=== PATIENT | female | born 1985 | race Caucasian/White ===

== ENCOUNTER 2019-04-13 17:08 | Observation (INO) | payer MEDICAID ==
[~2019-04-13] VITALS: Ht 165.1 cm; Wt 71.7 kg
[2019-04-13 17:21] VITALS: BP 119/65
[2019-04-13 17:30] VITALS: BP 119/65
--- NOTE | 2019-04-13 17:30 | NUR ---
CALLED L&D, SPOKE TO WILLIE. PT TO L&D VIA W/C WITH FAMILY
[2019-04-13] MEDS ORDERED: FERR325E14 PO (17:51)
[2019-04-13] MEDS ORDERED: PREN-380 PO (17:51)
[2019-04-13] MEDS ORDERED: CALC500T2 PO (17:51)
[2019-04-13 18:52] LABS: BASOPHILS % (AUTO) 0.4 % (0.0-2.0); EOSINOPHILS # (AUTO) 0.1 K/uL (0-0.4); EOSINOPHILS % (AUTO) 0.8 % (0.0-4.0); HEMATOCRIT 27.7 % (36-48); HEMOGLOBIN 8.4 g/dL (12.0-16.0); LYMPHOCYTES # (AUTO) 2.3 K/uL (2.5-16.5); LYMPHOCYTES % (AUTO) 28.1 % (20.5-51.1); MEAN CORPUSCULAR HEMOGLOBIN 20 pg (27-31); MEAN CORPUSCULAR HGB CONC 30 g/dL (33-37); MONOCYTES # (AUTO) 0.7 K/uL (0.8-1.0); MONOCYTES % (AUTO) 8.2 % (1.7-9.3); NEUTROPHILS # (AUTO) 5.2 K/uL (1.8-7.7); NEUTROPHILS % (AUTO) 62.5 % (42.2-75.2); PLATELET COUNT (AUTO) 274 K/uL (140-450); RED BLOOD CELL COUNT(AUTO) 4.13 MIL/uL (4.20-5.40); RED CELL DISTRIBUTION WIDTH 17.9 % (11.6-13.7); WHITE BLOOD COUNT (AUTO) 8.2 K/uL (4.8-10.8)
[2019-04-13 19:02] LABS: APPEARANCE,URINE CLEAR (CLEAR); BILIRUBIN,URINE NEGATIVE (NEGATIVE); BLOOD, URINE NEGATIVE (NEGATIVE); COLOR,URINE YELLOW (YELLOW); LEUKOCYTE ESTERASE ,URINE TRACE (NEGATIVE); NITRITE, URINE NEGATIVE (NEGATIVE); UGLUCOSE NEGATIVE (NEGATIVE)
[2019-04-13 19:07] LABS: BARBITURATE, URINE NEG. ng/ml (NEG <=200); BENZODIAZEPINE, URINE NEG. ng/mL (NEG <=200); CANNABINOID, URINE NEG. ng/mL (NEG <=50); COCAINE, URINE NEG. ng/mL (NEG <=300); OPIATE, URINE NEG. ng/mL (NEG <=2000); PHENCYCLIDINE SCREEN,URINE NEG. ng/mL (NEG <=25)
[2019-04-13 19:24] LABS: RBC,URINE 0-5 /HPF (0-5); WBC,URINE 0-5 /HPF (0-5)
== END 2019-04-13 20:45 | disposition home or self-care (01) ==
LOC: MED 17:08 → MLD 17:43
PROVIDERS: ADMIT Obstetrics & Gynecology; ATTEND Obstetrics & Gynecology
DX: O99.89 Other specified diseases and conditions complicating pregnancy, childbirth and the puerperium (principal); M54.9 Dorsalgia, unspecified; O99.323 Drug use complicating pregnancy, third trimester; F15.90 Other stimulant use, unspecified, uncomplicated; F12.10 Cannabis abuse, uncomplicated; Z3A.39 39 weeks gestation of pregnancy
CPT/HCPCS: 36415; 76805; 80305; 81001; 85025; 86592; 86703; 86762; 86870; 86886; 86900; 86901; 87653; 99281; G0378; Q0092

== ENCOUNTER 2019-04-14 16:14 | Inpatient (IN) | payer MEDICAID ==
[~2019-04-14] VITALS: Ht 165.1 cm; Wt 71.7 kg
[~2019-04-14 16:14] MED LIST: CALC500T2 PO; FERR325E14 PO; PREN-380 PO
[2019-04-14] MEDS ORDERED: METHYLERGONOVINE 0.2 MG/ML AMP IM PRN (16:40)
[2019-04-14] MEDS ORDERED: CARBOPROST 250 MCG/ML AMP IM PRN (16:40)
[2019-04-14] MEDS ORDERED: OXYTOCIN 10 UNITS/ML VIAL IM SCH (16:40)
[2019-04-14] MEDS ORDERED: PROMETHAZINE 25 MG/ML VIAL IVP PRN (16:40)
[2019-04-14] MEDS ORDERED: NALBUPHINE 10 MG/ML AMP IVP PRN (16:40)
[2019-04-14] MEDS ORDERED: OXYTOCIN 20 UNITS/LR PREMIX 1,000 ML IV ONE (17:33)
[2019-04-14] MEDS: LACTATED RINGERS 1,000 ML IV SCH (17:39)
[2019-04-14] MEDS ORDERED: OXYTOCIN 20 UNITS in LACTATED RINGERS 1,000 ML IV SCH (17:45)
[2019-04-14 18:01] LABS: BASOPHILS % (AUTO) 0.5 % (0.0-2.0); EOSINOPHILS # (AUTO) 0.1 K/uL (0-0.4); EOSINOPHILS % (AUTO) 0.7 % (0.0-4.0); HEMATOCRIT 26.4 % (36-48); HEMOGLOBIN 8.1 g/dL (12.0-16.0); LYMPHOCYTES # (AUTO) 2.3 K/uL (2.5-16.5); LYMPHOCYTES % (AUTO) 27.5 % (20.5-51.1); MEAN CORPUSCULAR HEMOGLOBIN 21 pg (27-31); MEAN CORPUSCULAR HGB CONC 31 g/dL (33-37); MEAN CORPUSCULAR VOLUME 67.1 fL (80-94); MONOCYTES # (AUTO) 0.7 K/uL (0.8-1.0); MONOCYTES % (AUTO) 8.8 % (1.7-9.3); NEUTROPHILS # (AUTO) 5.1 K/uL (1.8-7.7); NEUTROPHILS % (AUTO) 62.5 % (42.2-75.2); PLATELET COUNT (AUTO) 270 K/uL (140-450); RED BLOOD CELL COUNT(AUTO) 3.94 MIL/uL (4.20-5.40); RED CELL DISTRIBUTION WIDTH 17.6 % (11.6-13.7); WHITE BLOOD COUNT (AUTO) 8.2 K/uL (4.8-10.8)
[2019-04-14 18:11] LABS: APPEARANCE,URINE CLEAR (CLEAR); BILIRUBIN,URINE NEGATIVE (NEGATIVE); BLOOD, URINE NEGATIVE (NEGATIVE); COLOR,URINE YELLOW (YELLOW); LEUKOCYTE ESTERASE ,URINE NEGATIVE (NEGATIVE); NITRITE, URINE NEGATIVE (NEGATIVE); UGLUCOSE NEGATIVE (NEGATIVE)
[2019-04-14 18:16] LABS: BARBITURATE, URINE NEG. ng/ml (NEG <=200); BENZODIAZEPINE, URINE NEG. ng/mL (NEG <=200); CANNABINOID, URINE NEG. ng/mL (NEG <=50); COCAINE, URINE NEG. ng/mL (NEG <=300); OPIATE, URINE NEG. ng/mL (NEG <=2000); PHENCYCLIDINE SCREEN,URINE NEG. ng/mL (NEG <=25)
[2019-04-14] MEDS ORDERED: ROPIVACAINE 0.2%/NS PREMIX 100 ML EPI ONE (20:38)
[2019-04-15] MEDS ORDERED: MEASLES, MUMPS, AND RUBELLA 1 VIAL SQVAC PRN (02:55)
[2019-04-15] MEDS ORDERED: OXYTOCIN 10 UNITS/ML VIAL IM PRN (02:55)
[2019-04-15] MEDS ORDERED: BISACODYL 10 MG SUPP RC PRN (02:55)
[2019-04-15] MEDS ORDERED: METHYLERGONOVINE 0.2 MG/ML AMP IM PRN (02:55)
[2019-04-15] MEDS ORDERED: BENZOCAINE/MENTHOL 20%-0.5% 60 GM CAN TP PRN (02:55)
[2019-04-15] MEDS: LACTATED RINGERS 1,000 ML IV SCH (06:31)
[2019-04-15 07:14] LABS: HEMATOCRIT 24.3 % (36-48); HEMOGLOBIN 7.3 g/dL (12.0-16.0)
--- NOTE | 2019-04-15 08:25 | NUR ---
PATIENT HAS BEEN SCREENED AND CATEGORIZED LOW NUTRITION RISK. PATIENT WILL BE SEEN WITHIN 7 DAYS OF ADMISSION. 04/21/[address]
[2019-04-15] MEDS: IBUPROFEN 600 MG TAB PO PRN ×2 (10:30→22:49)
--- NOTE | 2019-04-15 16:17 | NUR ---
[facility], Artem Lopez, came and spoke to RAINER and RAINER Caldera. CPS RAIENR Mcgill asked SW if an assessment was conducted with patient because of CPS report. CPS RAINER Mcgill was unable to share information with SW regarding patient. SW escorted CPS RAINER Mcgill to patient so that an interview can be made. CPS RAINER Mcgill provided phone number [phone] for any additional questions. SW will follow up if needed.
[2019-04-15] MEDS ORDERED: DOCUSATE SOD/SENNA 50/8.6 MG 1 TAB PO SCH (21:00)
[2019-04-15] MEDS ORDERED: BISACODYL 5 MG TABEC PO SCH (21:00)
[2019-04-16] MEDS ORDERED: OXYTOCIN 10 UNITS/ML VIAL ONE (06:51)
--- NOTE | 2019-04-16 13:16 | NUR ---
SW was informed by Nurse Auguste that patient requested to speak to SW. SW and RAINER Caledra met with patient to address areas of concern involving CPS report. Patient stated that Dr. Skinner requested for him to be informed when SWs were speaking to patient. SW and RAINER Caldera met with Dr. Skinner and discussed at length the patient's circumstances. SW was with Dr. Skinner when CPS was called and requested social workers from hospital and CPS meet with patient together to address areas of concern. SW informed patient that CPS SW will come to clarify the conditions of the custody of her . SW was told by Nurse that SWs will be informed when CPS arrives. SW will follow up. Addendum: 04/16/19 at 1346 by Philipp Hodges SW was also informed that the conditions of patient having custody of was to enter inpatient substance abuse rehab for 90 days. Patient stated that her concerns involved losing her car and missing her housing appointment. Patient stated she is willing to complete the program, but she would lose out on her car and housing in the process. SW will follow up as needed. Addendum: 04/16/19 at 1606 by Verenice Crowder I asked patient if she had expressed to [facility] [employer] her concerns regarding the possibility of her losing her car and missing her housing appt if she entered inpatient alcohol/substance abuse rehab center. She replied she had not. I encouraged her to have open communication with [facility] [employer] so her concerns and/or questions can be addressed. She verbalized understanding.
--- NOTE | 2019-04-16 15:56 | NUR ---
[employer] Maintainer Note: Per patient's nurse Kalyani, patient already spoke with [employer] Maintainer from CPS ([facility]) from [facility] via phone and does not have any concerns regarding her CPS case at this time nor any other concerns. PRIMO Auguste reported patient would like to return home and does not wish to speak with [facility]'s social insurance adviser.
== END 2019-04-16 15:50 | disposition home or self-care (01) | DRG 560 ==
LOC: MLD 16:14 → MFCC 04-15 14:45
PROVIDERS: ADMIT Obstetrics & Gynecology; ATTEND Obstetrics & Gynecology
PROC: 10E0XZZ Delivery of Products of Conception, External Approach (ICD-10-PCS; principal; 2019-04-15)
PROC: 3E0R3BZ Introduction of Anesthetic Agent into Spinal Canal, Percutaneous Approach (ICD-10-PCS; 2019-04-15)
PROC: 00HU33Z Insertion of Infusion Device into Spinal Canal, Percutaneous Approach (ICD-10-PCS; 2019-04-15)
PROC: 3E0234Z Introduction of Serum, Toxoid and Vaccine into Muscle, Percutaneous Approach (ICD-10-PCS; 2019-04-15)
PROC: 0HQ9XZZ Repair Perineum Skin, External Approach (ICD-10-PCS; 2019-04-15)
DX: O75.89 Other specified complications of labor and delivery (principal); O99.344 Other mental disorders complicating childbirth; D50.9 Iron deficiency anemia, unspecified; F32.9 Major depressive disorder, single episode, unspecified; M54.9 Dorsalgia, unspecified; Z37.0 Single live birth; Z3A.39 39 weeks gestation of pregnancy; O99.02 Anemia complicating childbirth; Z29.13 Encounter for prophylactic Rho(D) immune globulin; O70.0 First degree perineal laceration during delivery
CPT/HCPCS: 36415; 51702; 59409; 76815; 80305; 81003; 82948; 85018; 85025; 86592; 86870; 86886; 86900; 86901; J2590; J2790; J2795; J7120; Q0092